=== PATIENT | male | born 1975 | race Caucasian/White ===

== ENCOUNTER 2017-10-08 02:50 | Emergency (ER) | payer MEDICAID ==
[~2017-10-08] VITALS: Ht 172.7 cm; Wt 115.7 kg
[2017-10-08 03:08] VITALS: Ht 172.7 cm; Wt 115.7 kg
[2017-10-08 04:01] LABS: UA SPECIFIC GRAVITY 1.015 (1.005-1.035); microscopic required? YES; urine erythrocyte 3+ (NEGATIVE)
[2017-10-08 06:09] VITALS: BP 154/99
== END 2017-10-08 06:09 | disposition home or self-care (01) ==
LOC: ED 02:50
PROVIDERS: Emergency Medicine
DX: N20.0 Calculus of kidney (principal)
CPT/HCPCS: J1885

== ENCOUNTER 2018-02-12 09:49 | Emergency (ER) | payer MEDICAID ==
[~2018-02-12] VITALS: Ht 167.6 cm; Wt 116.6 kg
[2018-02-12 09:56] VITALS: Ht 167.6 cm; Wt 116.6 kg
[2018-02-12 11:02] VITALS: BP 148/98
== END 2018-02-12 11:02 | disposition home or self-care (01) ==
LOC: ED 09:49
DX: S01.01XA Laceration without foreign body of scalp, initial encounter (principal); W22.8XXA Striking against or struck by other objects, initial encounter; Y93.E9 Activity, other interior property and clothing maintenance; Y92.89 Other specified places as the place of occurrence of the external cause; Y99.8 Other external cause status

== ENCOUNTER 2018-02-19 20:39 | Emergency (ER) | payer MEDICAID ==
[~2018-02-19] VITALS: Ht 170.2 cm; Wt 116.6 kg
[2018-02-19 21:26] VITALS: Ht 170.2 cm; Wt 116.6 kg
[2018-02-19 21:49] VITALS: BP 150/90
== END 2018-02-19 21:49 | disposition home or self-care (01) ==
LOC: ED 20:39
DX: Z48.02 Encounter for removal of sutures (principal)